=== PATIENT | female | born 1985 | race Caucasian/White ===

== ENCOUNTER 2017-04-03 16:02 | Emergency (ER) | payer SELFPAY ==
[2017-04-03 16:10] VITALS: BP 122/65
--- NOTE | 2017-04-03 16:53 | ER Document Report ---
ED General - General Chief Complaint: Vaginal Bleeding Stated Complaint: VAGINAL BLEEDING Time Seen by Provider: 04/03/17 16:41 Mode of Arrival: Ambulatory Information source: Patient Notes: 31-year-old female 2 para 0 history of infertility of approximately 11 weeks a positive blood type presents with complaints of vaginal bleeding that started approximately an hour ago. Patient denies any large clots TRAVEL OUTSIDE OF THE [place] IN LAST 30 DAYS: No - HPI Onset: Just prior to arrival Onset/Duration: Sudden Quality of pain: Cramping Severity: Mild Pain Level: 1 Associated symptoms: Other Exacerbated by: Denies Relieved by: Denies Similar symptoms previously: No Recently seen / treated by doctor: No - Related Data Allergies/Adverse Reactions: No Known Allergies Allergy (Unverified 04/03/17 16:08) Past Medical History - Social History Smoking Status: Never Smoker Cigarette use (# per day): No Chew tobacco use (# tins/day): No Smoking Education Provided: No Frequency of alcohol use: None Drug Abuse: None Family History: Reviewed & Not Pertinent Patient has suicidal ideation: No Patient has homicidal ideation: No Renal/ Medical History: Denies: Hx Peritoneal Dialysis Review of Systems - Review of Systems Notes: REVIEW OF SYSTEMS: CONSTITUTIONAL : Denies fever, chills, or sweats. Denies recent illness. EENT: Denies eye, ear, throat, or mouth pain or symptoms. Denies nasal or sinus congestion or discharge. Denies throat, tongue, or mouth swelling or difficulty swallowing. CARDIOVASCULAR: Denies chest pain. Denies palpitations or racing or irregular heart beat. Denies ankle edema. RESPIRATORY: Denies cough, cold, or chest congestion. Denies shortness of breath, difficulty breathing, or wheezing. GASTROINTESTINAL: Denies abdominal pain or distention. Denies nausea, vomiting , or diarrhea. Denies blood in vomitus, stools, or per rectum. Denies black, tarry stools. Denies constipation. GENITOURINARY: Denies difficulty urinating, painful urination, burning, frequency, blood in urine, or discharge. FEMALE GENITOURINARY: Admits to vaginal bleeding MUSCULOSKELETAL: Denies back or neck pain or stiffness. Denies joint pain or swelling. SKIN: Denies rash, lesions or sores. HEMATOLOGIC : Denies easy bruising or bleeding. LYMPHATIC: Denies swollen, enlarged glands. NEUROLOGICAL: Denies confusion or altered mental status. Denies passing out or loss of consciousness. Denies dizziness or lightheadedness. Denies headache. Denies weakness or paralysis or loss of use of either side. Denies problems with gait or speech. Denies sensory loss, numbness, or tingling. Denies seizures. PSYCHIATRIC: Denies anxiety or stress. Denies depression, suicidal ideation, or homicidal ideation. ALL OTHER SYSTEMS REVIEWED AND NEGATIVE. PHYSICAL EXAMINATION: GENERAL: Well-appearing, well-nourished and in no acute distress. HEAD: Atraumatic, normocephalic. EYES: Pupils equal round and reactive to light, extraocular movements intact, conjunctiva are normal. ENT: Nares patent, oropharynx clear without exudates. Moist mucous membranes. NECK: Normal range of motion, supple without lymphadenopathy LUNGS: Breath sounds clear to auscultation bilaterally and equal. No wheezes rales or rhonchi. HEART: Regular rate and rhythm without murmurs ABDOMEN: Soft, nontender, nondistended abdomen. No guarding, no rebound. No masses appreciated. Female : deferred Musculoskeletal: Normal range of motion, no pitting or edema. No cyanosis. NEUROLOGICAL: Cranial nerves grossly intact. Normal speech, normal gait. Normal sensory, motor exams PSYCH: Normal mood, normal affect. SKIN: Warm, Dry, normal turgor, no rashes or lesions noted. Dictation was performed using [employer] voice recognition software Physical Exam - Vital signs Vitals: Temp Pulse Resp BP Pulse Ox 98.3 F 79 18 122/65 100 04/03/17 16:09 04/03/17 16:09 04/03/17 16:09 04/03/17 16:09 04/03/17 16:09 Course - Re-evaluation Re-evalutation: 04/03/17 19:50 Ultrasound was consistent with a 12 week intrauterine heart rate 160s , cervix was closed. Patient notes no further clots, I give her very strict pelvic rest and return precautions and explained threatened miscarriage She is very happy with the current plan After performing a Medical Screening Examination, I estimate there is LOW risk for ACUTE APPENDICITIS, BOWEL OBSTRUCTION, ACUTE CHOLECYSTITIS, PERFORATED DIVERTICULITIS, INCARCERATED HERNIA, PANCREATITIS, PELVIC INFLAMMATORY DISEASE, PERFORATED ULCER, ECTOPIC , or TUBO-OVARIAN ABSCESS, thus I consider the discharge disposition reasonable. Also, there is no evidence or peritonitis , sepsis, or toxicity. I have reevaluated this patient multiple times and no significant life threatening changes are noted. The patient and I have discussed the diagnosis and risks, and we agree with discharging home with close follow-up with the understanding that symptoms and presentations can change. We also discussed returning to the Emergency Department immediately if new or worsening symptoms occur. We have discussed the symptoms which are most concerning (e.g., bloody stool, fever, changing or worsening pain, vomiting) that necessitate immediate return. - Vital Signs Vital signs: Temp Pulse Resp BP Pulse Ox 98.3 F 79 18 122/65 100 04/03/17 16:09 04/03/17 16:09 04/03/17 16:09 04/03/17 16:09 04/03/17 16:09 - Laboratory Result Diagrams: 04/03/17 17:34 04/03/17 17:34 Laboratory results interpreted by me: 04/03/17 04/03/17 17:34 18:44 Sodium 135.4 L Calcium 10.6 H Beta HCG, Quant 61050.00 H Urine Blood LARGE H - Diagnostic Test Radiology reviewed: Image reviewed, Reports reviewed Discharge - Discharge Clinical Impression: Threatened miscarriage in early , Bleeding in early Condition: Stable Disposition: HOME, SELF-CARE Instructions: Threatened Miscarriage ([facility]) Additional Instructions: Follow-up with your RELIEF WORKER for reevaluation return immediately if there are any other concerns
[2017-04-03 17:55] LABS: ABSOLUTE LYMPHOCYTES (AUTO) 1.7 10^3/uL (0.5-4.7); ABSOLUTE MONOCYTES (AUTO) 0.8 10^3/uL (0.1-1.4); ABSOLUTE NEUT (AUTO) 6.8 10^3/uL (1.7-8.2); BASOPHILS % (AUTO) 0.5 % (0-2); EOSINOPHILS % (AUTO) 0.5 % (0-6); HEMATOCRIT 38.4 % (36.0-47.0); HEMOGLOBIN 13.1 g/dL (12.0-15.5); LYMPHOCYTES % (AUTO) 18.2 % (13-45); MEAN CORPUSCULAR HEMOGLOBIN 29.2 pg (27.0-33.4); MEAN CORPUSCULAR HGB CONC 34.1 g/dL (32.0-36.0); MEAN CORPUSCULAR VOLUME 86 fl (80-97); MONOCYTES % (AUTO) 8.2 % (3-13); PLATELET COUNT 327 10^3/uL (150-450); RED BLOOD COUNT 4.48 10^6/uL (3.72-5.28); RED CELL DISTRIBUTION WIDTH 13.2 % (11.5-14.0); SEGMENTED NEUTROPHILS % (AUTO) 72.6 % (42-78); TOTAL CELLS COUNTED % (AUTO) 100 %; WHITE BLOOD COUNT 9.4 10^3/uL (4.0-10.5)
[2017-04-03 18:35] LABS: ALANINE AMINOTRANSFERASE 44 U/L (9-52); ALBUMIN 4.4 g/dL (3.5-5.0); ALKALINE PHOSPHATASE 62 U/L (38-126); ANION GAP 10 (5-19); ASPARTATE AMINO TRANSFERASE 28 U/L (14-36); BILIRUBIN,DIRECT 0.3 mg/dL (0.0-0.4); BILIRUBIN,TOTAL 0.3 mg/dL (0.2-1.3); BLOOD UREA NITROGEN 7 mg/dL (7-20); CALCIUM 10.6 mg/dL (8.4-10.2); CARBON DIOXIDE 24 mmol/L (22-30); CHLORIDE 101 mmol/L (98-107); GLUCOSE 95 mg/dL (75-110); POTASSIUM 4.5 mmol/L (3.6-5.0); SODIUM 135.4 mmol/L (137-145); TOTAL PROTEIN 7.7 g/dL (6.3-8.2)
--- NOTE | 2017-04-03 18:57 | RADIOLOGY REPORT (SQ) ---
EXAM DESCRIPTION: U/S OB TRANSVAG W/DOPPLER COMPLETED DATE/TIME: 04/03/2017 6:46 pm REASON FOR STUDY: + preg vag bleed COMPARISON: None. TECHNIQUE: Transvaginal and transabdominal static and realtime grayscale images acquired of the pelv is. Additional selected spectral and color Doppler images recorded. All images stored on PACs. bHCG: Pending. LIMITATIONS: None. FINDINGS: FETUS: EGA: 12 weeks 0 days DANUTA: 10/16/2017 EFW: Not applicable FHR: 162 beats per minute. SHERLY: Adequate PLACENTA: Not applicable CERVICAL LENGTH: 4.1 cm Closed. UTERUS: There is a 4.2 x 2.8 x 3.8 cm anterior uterine fibroid. RIGHT ADNEXA: Normal ovary with normal vascular flow. 2.2 cm cysts. Small amount of free fluid. LEFT ADNEXA: Normal ovary with normal vascular flow. No adnexal free fluid. No adnexal masses. FREE FLUID: None. OTHER: No other significant finding. IMPRESSION: LIVING INTRAUTERINE . ESTIMATED GESTATIONAL AGE:12 weeks 0 days Large uterine fibroid. Right ovarian cyst. Trimester of : First trimester - 0 to 13 weeks. TECHNICAL DOCUMENTATION: JOB ID: [id number] [employer]- All Rights Reserved
[2017-04-03 19:19] LABS: APPEARANCE,URINE CLEAR; BILIRUBIN,URINE NEGATIVE (NEGATIVE); COLOR,URINE STRAW; GLUCOSE, URINE NEGATIVE (NEGATIVE); KETONES,URINE NEGATIVE (NEGATIVE); LEUKOCYTE ESTERASE,URINE NEGATIVE (NEGATIVE); NITRITE,URINE NEGATIVE (NEGATIVE); PROTEIN,URINE NEGATIVE (NEGATIVE); URINE SPECIFIC GRAVITY 1.001; UROBILINOGEN,URINE NEGATIVE mg/dL (<2.0)
== END 2017-04-03 19:14 | disposition home or self-care (01) ==
LOC: ER 16:02
DX: O20.0 Threatened abortion (principal); Z3A.00 Weeks of gestation of pregnancy not specified
CPT/HCPCS: 36415; 76817; 80053; 81001; 84702; 85025; 86900; 86901; 93976; 99284

== ENCOUNTER → 2017-05-08 | Outpatient (CLI) | payer BC | LOC: OD 17:35 | PROVIDERS: ATTEND Obstetrics & Gynecology | DX: Z36.9 Encounter for antenatal screening, unspecified (principal) | CPT/HCPCS: 36415; 82105 ==

== ENCOUNTER 2017-09-30 11:49 | Outpatient (CLI) | payer BC ==
--- NOTE | 2017-09-30 12:27 | Non Stress Test Report ---
Non Stress Test Datetime Report Generated by CPN: 09/30/2017 12:27 DEMOGRAPHIC EGA NST: 37.2 INDICATION Indication for Study: Ordered by Provider Indication for Study (NST) Other: +afp MONITORING Monitor Explained: Monitor Explained; Test Explained; Patient Verbalized Understanding Time on Monitor: 09/30/2017 11:56 Time off Monitor: 09/30/2017 12:21 NST Duration: 25 NST INTERVENTIONS NST Interventions: PO Hydration; Reposition Patient Physician Notified NST: Dr Ryan BABY A: [id number] BABY A Movement : Present Contraction Frequency : none FHR Baseline : 140 Accelerations : 15X15 Decelerations : None Variability : Moderate 6-25bpm NST Review: Meets Criteria for Reactive NST NST Review and Verified By : RAMON Bhatti Results: Reactive NST REPORT Report Trigger: Send Report
== END 2017-09-30 12:27 | disposition home or self-care (01) ==
LOC: LC 11:49
PROVIDERS: ATTEND Obstetrics & Gynecology
PROC: 4A1HXCZ Monitoring of Products of Conception, Cardiac Rate, External Approach (ICD-10-PCS; principal; 2017-09-30)
DX: Z34.93 Encounter for supervision of normal pregnancy, unspecified, third trimester (principal)
CPT/HCPCS: 59025

== ENCOUNTER 2017-10-03 16:24 | Outpatient (CLI) | payer BC | END 2017-10-03 16:59 | disposition home or self-care (01) | LOC: LC 16:24 | PROVIDERS: ATTEND Obstetrics & Gynecology Gynecology | PROC: 4A1HXCZ Monitoring of Products of Conception, Cardiac Rate, External Approach (ICD-10-PCS; principal; 2017-10-03) | DX: Z34.93 Encounter for supervision of normal pregnancy, unspecified, third trimester (principal) | CPT/HCPCS: 59025 ==

== ENCOUNTER 2017-10-04 18:05 | Outpatient (CLI) | payer BC ==
--- NOTE | 2017-10-04 18:21 | Non Stress Test Report ---
Non Stress Test Datetime Report Generated by CPN: 10/04/2017 18:21 DEMOGRAPHIC EGA NST: 37.5 INDICATION Indication for Study: Ordered by Provider Indication for Study (NST) Other: +afp MONITORING Monitor Explained: Monitor Explained; Test Explained; Patient Verbalized Understanding Time on Monitor: 10/03/2017 16:32 Time off Monitor: 10/03/2017 16:56 NST Duration: 24 NST INTERVENTIONS NST Interventions: PO Hydration; Reposition Patient Physician Notified NST: Dr Sosa BABY A: [id number] BABY A Movement : Present Contraction Frequency : irritability FHR Baseline : 140 Accelerations : 15X15 Decelerations : None Variability : Moderate 6-25bpm NST Review: Meets Criteria for Reactive NST NST Review and Verified By : Srini Gonzales RN NST Results: Reactive NST REPORT Report Trigger: Send Report
[2017-10-04 18:46] LABS: APPEARANCE,URINE CLEAR; BILIRUBIN,URINE NEGATIVE (NEGATIVE); COLOR,URINE STRAW; GLUCOSE, URINE NEGATIVE (NEGATIVE); KETONES,URINE NEGATIVE (NEGATIVE); LEUKOCYTE ESTERASE,URINE NEGATIVE (NEGATIVE); NITRITE,URINE NEGATIVE (NEGATIVE); PROTEIN,URINE NEGATIVE (NEGATIVE); URINE SPECIFIC GRAVITY 1.004; UROBILINOGEN,URINE NEGATIVE mg/dL (<2.0)
[2017-10-04 19:19] LABS: URINE AMPHETAMINES SCREEN NEGATIVE; URINE BARBITURATES SCREEN NEGATIVE; URINE BENZODIAZEPINES SCREEN NEGATIVE; URINE MARIJUANA (THC) SCREEN NEGATIVE
[2017-10-04 19:43] LABS: URINE COCAINE SCREEN NEGATIVE; URINE METHADONE SCREEN NEGATIVE; URINE PHENCYCLIDINE SCREEN NEGATIVE
== END 2017-10-04 19:45 | disposition home or self-care (01) ==
LOC: LC 18:05
PROVIDERS: ATTEND Obstetrics & Gynecology
PROC: 4A1HXCZ Monitoring of Products of Conception, Cardiac Rate, External Approach (ICD-10-PCS; principal; 2017-10-04)
DX: Z34.93 Encounter for supervision of normal pregnancy, unspecified, third trimester (principal)
CPT/HCPCS: 80307; 81005; 84112

== ENCOUNTER 2017-10-09 12:32 | Outpatient (CLI) | payer BC ==
--- NOTE | 2017-10-09 12:36 | Non Stress Test Report ---
Non Stress Test Datetime Report Generated by CPN: 10/09/2017 12:36 DEMOGRAPHIC EGA NST: 37.6 INDICATION Indication for Study: Ordered by Provider VITAL SIGNS Temperature - NST: 98.3 Pulse - NST: 75 RESP - NST: 16 NBPSYS NST: 117 NBPDIA NST: 67 URINE RESULTS Urine Protein, NST: Negative Urine Ketones - NST: Negative Urine Glucose - NST: Negative Urine Blood - NST: Negative MONITORING Monitor Explained: Monitor Explained; Test Explained; Patient Verbalized Understanding Time on Monitor: 10/04/2017 18:24 Time off Monitor: 10/04/2017 19:25 NST Duration: 61 NST INTERVENTIONS NST Interventions: None Physician Notified NST: dr glasgow-enio BABY A: [id number] BABY A Movement : Present Contraction Frequency : 20 FHR Baseline : 140 Accelerations : 15X15 Decelerations : None Variability : Moderate 6-25bpm NST Review: Meets Criteria for Reactive NST NST Review and Verified By : K. Jarvis, RN NST Results: Reactive NST REPORT Report Trigger: Send Report
--- NOTE | 2017-10-09 15:06 | Non Stress Test Report ---
Non Stress Test Datetime Report Generated by CPN: 10/09/2017 15:05 DEMOGRAPHIC EGA NST: 38.4 INDICATION Indication for Study: Ordered by Provider MONITORING Monitor Explained: Monitor Explained; Test Explained; Patient Verbalized Understanding Time on Monitor: 10/09/2017 12:46 Time off Monitor: 10/09/2017 14:36 NST Duration: 110 NST INTERVENTIONS NST Interventions: PO Hydration; Reposition Patient Physician Notified NST: J. Maldonado, CNM BABY A Movement : Present Contraction Frequency : 0 FHR Baseline : 145 Accelerations : 15X15 Decelerations : None Variability : Moderate 6-25bpm NST Review: Meets Criteria for Reactive NST NST Review and Verified By : RAMON Astorga Results: Reactive NST REPORT Report Trigger: Send Report
== END 2017-10-09 14:45 | disposition home or self-care (01) ==
LOC: LC 12:32
PROVIDERS: ATTEND Student in an Organized Health Care Education/Training Program
PROC: 4A1HXCZ Monitoring of Products of Conception, Cardiac Rate, External Approach (ICD-10-PCS; principal; 2017-10-09)
DX: Z34.93 Encounter for supervision of normal pregnancy, unspecified, third trimester (principal)
CPT/HCPCS: 59025

== ENCOUNTER 2017-10-13 06:09 | Inpatient (IN) | payer BC ==
[2017-10-10 11:46] LABS: ABSOLUTE LYMPHOCYTES (AUTO) 1.5 10^3/uL (0.5-4.7); ABSOLUTE MONOCYTES (AUTO) 0.9 10^3/uL (0.1-1.4); ABSOLUTE NEUT (AUTO) 5.4 10^3/uL (1.7-8.2); BASOPHILS % (AUTO) 0.5 % (0-2); EOSINOPHILS % (AUTO) 0.6 % (0-6); HEMATOCRIT 33.8 % (36.0-47.0); HEMOGLOBIN 11.5 g/dL (12.0-15.5); LYMPHOCYTES % (AUTO) 19.5 % (13-45); MEAN CORPUSCULAR HEMOGLOBIN 28.9 pg (27.0-33.4); MEAN CORPUSCULAR HGB CONC 34.1 g/dL (32.0-36.0); MEAN CORPUSCULAR VOLUME 85 fl (80-97); MONOCYTES % (AUTO) 11.5 % (3-13); PLATELET COUNT 238 10^3/uL (150-450); RED BLOOD COUNT 3.99 10^6/uL (3.72-5.28); RED CELL DISTRIBUTION WIDTH 13.6 % (11.5-14.0); SEGMENTED NEUTROPHILS % (AUTO) 67.9 % (42-78); TOTAL CELLS COUNTED % (AUTO) 100 %; WHITE BLOOD COUNT 7.9 10^3/uL (4.0-10.5)
[2017-10-10 12:13] LABS: APPEARANCE,URINE CLEAR; BILIRUBIN,URINE NEGATIVE (NEGATIVE); COLOR,URINE YELLOW; GLUCOSE, URINE NEGATIVE (NEGATIVE); KETONES,URINE NEGATIVE (NEGATIVE); LEUKOCYTE ESTERASE,URINE NEGATIVE (NEGATIVE); NITRITE,URINE NEGATIVE (NEGATIVE); PROTEIN,URINE NEGATIVE (NEGATIVE); UROBILINOGEN,URINE NEGATIVE mg/dL (<2.0)
[2017-10-10 12:53] LABS: URINE AMPHETAMINES SCREEN NEGATIVE; URINE BARBITURATES SCREEN NEGATIVE; URINE BENZODIAZEPINES SCREEN NEGATIVE; URINE COCAINE SCREEN NEGATIVE; URINE MARIJUANA (THC) SCREEN NEGATIVE; URINE METHADONE SCREEN NEGATIVE; URINE PHENCYCLIDINE SCREEN NEGATIVE
[~2017-10-13 06:09] MED LIST: CEFAZOLIN 2 GM/D5W RTU 2 GM/50 ML RTUPB IV PRN; LACTATED RINGERS 1000 ML IV PRN; LIDOCAINE 0.5% INJ-PF (5 MG/ML) 50 ML SDV SUBCUT PRN; RINGERS SOLUTION,LACTATED 2,000 ML IV PRN
[2017-10-13] MEDS ORDERED: CEFAZOLIN 1 GM/D5W RTU 2 GM/100 ML RTUPB IV ONE (06:19)
[2017-10-13] MEDS ORDERED: BUPIVACAINE HCL/DEX-WATER/PF 15 MG/2 ML AMPULE ONE (07:03)
[2017-10-13] MEDS ORDERED: OXYTOCIN 10 UNIT/ML VIAL ONE (07:07)
[2017-10-13] MEDS ORDERED: MIDAZOLAM 2 MG/2 ML INJ ONE (07:07)
[2017-10-13] MEDS ORDERED: ONDANSETRON HCL INJ/PF 4 MG/2 ML SDV ONE (07:07)
[2017-10-13] MEDS ORDERED: FENTANYL CITRATE INJ/PF 100 MCG/2 ML AMPUL ONE (07:07)
[2017-10-13] MEDS ORDERED: ACETAMINOPHEN 1,000 MG/100 ML RTUPB IV ONE (07:10)
[2017-10-13] MEDS ORDERED: EPHEDRINE SULFATE INJ 50 MG/1 ML AMPULE ONE (08:40)
[2017-10-13] MEDS ORDERED: PHENYLEPHRINE HCL INJ/PF 10 MG/1 ML SDV ONE (09:17)
[2017-10-13] MEDS ORDERED: METHYLERGONOVINE MALEATE INJ/PF 0.2 MG/1 ML AMPULE ONE (09:25)
[2017-10-13] MEDS ORDERED: TRANEXAMIC ACID INJ/PF 1,000 MG/10 ML SDV IV ONE (09:28)
[2017-10-13] MEDS ORDERED: DIPH/PERTUSS(ACELL)/TETANUS VAC/PF 0.5 ML SYR (>=10YO) IM PRN (09:35)
[2017-10-13] MEDS ORDERED: PROMETHAZINE HCL INJ 25 MG/1 ML VIAL IV PRN ×3 (09:35→09:48)
[2017-10-13] MEDS ORDERED: SIMETHICONE 80 MG TAB.CHEW PO PRN (09:35)
[2017-10-13] MEDS ORDERED: ACETAMINOPHEN 325 MG TABLET PO PRN (09:35)
[2017-10-13] MEDS ORDERED: OXYTOCIN/NORMAL SALINE 20 UNIT/1,000 ML RTUINJ IV PRN (09:35)
[2017-10-13] MEDS ORDERED: MEASLES,MUMPS&RUBELLA VACC/PF 0.5 ML VIAL SUBCUT PRN (09:35)
[2017-10-13] MEDS ORDERED: MORPHINE SULFATE 10 MG/ML INJ IM PRN (09:35)
--- NOTE | 2017-10-13 09:42 | PDOC DELIVERY SUMMARY ---
Delivery Summary - Maternal Hx : II Hx Total # of Abortions (Sponateous & Elective): 1 DANUTA: 10/19/17 Gestational Age: 39+1 Ruptured Membranes: AROM Fluids: Clear - Delivery Labor: Not In Labor Presentation: Vertex Nuchal Cord: Yes - Medications Type of Anesthesia:: Spinal OB Provider Note Provider Note: 8X9 fibroid removed from interior of uterus t time of
--- NOTE | 2017-10-13 09:45 | OPERATIVE REPORT E ---
Operative Report NAME: SHILPA TYLER : 1985 AGE: 32Y DATE OF SURGERY: 10/13/2017 ROOM: 215 PREOPERATIVE DIAGNOSIS: IUP at term with a cervical fibroid. POSTOPERATIVE DIAGNOSIS: IUP at term with a cervical fibroid. PROCEDURE: Primary low-transverse , delivery of a viable male, 6 pounds, 8 and 9 Apgars, and a myomectomy. SURGEON: Kamille JEONG M.D. ESTIMATED BLOOD LOSS: Less than 1000 mL. TISSUE REMOVED: Placenta and fibroid. PROCEDURE: The patient was placed in a supine position, rolled on her right side, prepped and draped in the sterile fashion. A Pfannenstiel incision was made. The incision extended through the subcutaneous tissue and fascia with sharp dissection. Fascia was sharply divided. Rectus muscles were bluntly and sharply divided. Parietal peritoneum was entered with sharp dissection. There was a large fibroid noted on the right approximately 9 x 9 cm. The lower uterine incision was made and extended bilaterally. The was then delivered via [place] through the uteroabdominal incision. Nose and mouth were suctioned with a bulb syringe. Cord was clamped. Infant was passed from the table. The fibroid was removed by dissecting it from the surrounding uterine tissue from the inside where the previous opening had been made. The uterus was then closed in 2 layers, the first a running stitch of 0 Vicryl and the second a Lembert stitch imbricating the first layer. There were 2 areas of bleeding noted, controlled with [id number] sutures of 0 Vicryl. The fascia was then closed with #1 Vicryl and the skin was closed with subcutaneous absorbable gina. The patient tolerated the procedure well. Urine remained clear throughout the procedure. She was taken to the recovery room in good condition and infant to the nursery in good condition. DICTATING PHYSICIAN: Kamille JEONG M.D. [id number] Y#: [id number] ID: [id number] JOB#: [id number] ACCT: [id number] cc:Kamille JEONG M.D. >
[2017-10-13] MEDS ORDERED: FENTANYL CITRATE INJ/PF 100 MCG/2 ML AMPUL IV PRN ×3 (09:48)
[2017-10-13] MEDS ORDERED: DIPHENHYDRAMINE HCL 50 MG/ML VIAL IV PRN (09:48)
[2017-10-13] MEDS ORDERED: MEPERIDINE HCL/PF INJ 25 MG/1 ML DISP.SYRIN IV PRN (09:48)
[2017-10-13] MEDS ORDERED: MORPHINE SULFATE 10 MG/ML INJ IV PRN (09:48)
[2017-10-13] MEDS ORDERED: KETOROLAC TROMETHAMINE INJ/PF 30 MG/1 ML SDV IV SCH (10:00)
[2017-10-13] MEDS ORDERED: PROMETHAZINE HCL INJ 25 MG/1 ML VIAL ONE (10:05)
[2017-10-13] MEDS: MORPHINE SULFATE 10 MG/ML INJ ONE ×3 (10:48→11:06)
[2017-10-13] MEDS ORDERED: OXYTOCIN/NORMAL SALINE 20 UNIT/1,000 ML RTUINJ ONE (10:58)
[2017-10-13] MEDS: OXYCODONE-ACETAMINOPHEN 5-325 MG TABLET PO PRN ×2 (12:58→20:13)
[2017-10-13] MEDS: KETOROLAC TROMETHAMINE INJ/PF 30 MG/1 ML SDV IV SCH ×2 (15:04→22:20)
[2017-10-13] MEDS: DOCUSATE SODIUM 100 MG CAPSULE PO SCH ×2 (16:19→17:47)
[2017-10-13] MEDS: PRENATAL VITAMIN W DHA CAPSULE PO SCH (16:19)
[2017-10-14] MEDS: OXYCODONE-ACETAMINOPHEN 5-325 MG TABLET PO PRN ×3 (03:58→23:15)
[2017-10-14] MEDS: KETOROLAC TROMETHAMINE INJ/PF 30 MG/1 ML SDV IV SCH (06:10)
[2017-10-14 08:14] LABS: HEMATOCRIT 30.7 % (36.0-47.0); HEMOGLOBIN 10.5 g/dL (12.0-15.5); MEAN CORPUSCULAR HEMOGLOBIN 29.1 pg (27.0-33.4); MEAN CORPUSCULAR HGB CONC 34.1 g/dL (32.0-36.0); MEAN CORPUSCULAR VOLUME 85 fl (80-97); PLATELET COUNT 202 10^3/uL (150-450); RED BLOOD COUNT 3.59 10^6/uL (3.72-5.28); WHITE BLOOD COUNT 13.5 10^3/uL (4.0-10.5)
[2017-10-14] MEDS: DOCUSATE SODIUM 100 MG CAPSULE PO SCH ×2 (10:13→17:13)
[2017-10-14] MEDS: PRENATAL VITAMIN W DHA CAPSULE PO SCH (10:13)
[2017-10-14] MEDS: IBUPROFEN 800 MG TABLET PO SCH ×3 (11:54→23:15)
--- NOTE | 2017-10-14 15:12 | PDOC PROGRESS REPORT ---
Subjective-OB Progress Note for:: 10/14/17 Subjective: 32yo G2 now P1 s/p primary ppd 1. Pt. ambulating and voiding without difficulty. Bonding well with baby. Denies any concerns at this time. Physical Exam (OB) Vital Signs: Temp Pulse Resp BP Pulse Ox 98.4 F 73 18 105/68 98 10/14/17 04:11 10/14/17 04:11 10/14/17 04:11 10/14/17 04:11 10/14/17 04:11 Intake & Output 10/13/17 10/14/17 10/15/17 06:59 06:59 06:59 Intake Total 2836 Output Total 2942 Balance -106 Weight 87.543 kg - General General Appearance: Appears well In distress: None - PIH/Pre-Eclampsia Clonus: Negative Epigastric Pain: No Visual Changes: No - Dressing Removed: No - Medipore dressing, CDI, no drainage noted Incision: Dressing, Well Approximated - Lochia Lochia Amount: Scant < 10 ml Lochia Color: Rubra/Red - Abdomen Description: Soft, Round Hernia Present: No Fundal Description: Firm, Midline Fundal Height: u/u - u/2 - Respiratory Respiratory Status: No respiratory distress - Extremities Upper extremity: Normal inspection Lower extremities: Normal inspection - Neurological Cognition: Normal Orientation: AAOx4 - Psychological Associated symptoms: Normal affect, Normal mood Objective-Diagnostic Laboratory: 10/14/17 06:53 10/13/17 10/14/17 06:41 06:53 WBC 13.5 H RBC 3.59 L Hgb 10.5 L Hct 30.7 L MCV 85 MCH 29.1 MCHC 34.1 RDW 14.0 Plt Count 202 Blood Type A POSITIVE Antibody Screen NEGATIVE Assessment and Plan(PN) - Assessment and Plan (1) Status post primary low transverse section Is this a current diagnosis for this admission?: Yes Plan: Routine pp care (2) Fibroid Qualifiers: Uterine leiomyoma location: unspecified location Qualified Code(s): D25.9 - Leiomyoma of uterus, unspecified Is this a current diagnosis for this admission?: Yes Plan: removed at time of surgery, pathology pending (3) Acute blood loss anemia Is this a current diagnosis for this admission?: Yes Plan: increase dietary iron and feso4 bid - Time Spent with Patient Time with patient: Less than 15 minutes Medications reviewed and adjusted accordingly: Yes - Disposition Anticipated Discharge: Home Within: within 24 hours
[2017-10-15] MEDS: OXYCODONE-ACETAMINOPHEN 5-325 MG TABLET PO PRN (07:20)
[2017-10-15] MEDS: IBUPROFEN 800 MG TABLET PO SCH ×2 (07:22→11:55)
[2017-10-15] MEDS: DOCUSATE SODIUM 100 MG CAPSULE PO SCH (09:20)
[2017-10-15] MEDS: PRENATAL VITAMIN W DHA CAPSULE PO SCH (09:21)
--- NOTE | 2017-10-15 10:00 | PDOC PROGRESS REPORT ---
Subjective-OB Progress Note for:: 10/15/17 Subjective: Post Op Day #2, Primary due to fibroid at the cervix, A+ Rubella Immune, , desires to go home today Physical Exam (OB) Vital Signs: Temp Pulse Resp BP Pulse Ox 98.2 F 84 17 115/68 98 10/15/17 08:34 10/15/17 08:34 10/15/17 08:34 10/15/17 08:34 10/15/17 08:34 Intake & Output 10/14/17 10/15/17 10/16/17 06:59 06:59 06:59 Intake Total 2836 1000 Output Total 2942 Balance -106 1000 - General General Appearance: Appears well, Alert In distress: None - PIH/Pre-Eclampsia Clonus: Negative Headache: Absent Epigastric Pain: No Visual Changes: No - Dressing Removed: No Incision: Dressing, Well Approximated Closure Type: Sutures - Lochia Lochia Amount: Small 10-25 ml Lochia Color: Rubra/Red - Abdomen Description: Soft, Round Hernia Present: No Fundal Description: Firm, Midline Fundal Height: u/u - u/2 - Respiratory Respiratory Status: No respiratory distress - Abdominal Inspection: Normal Distension: No distension Tenderness: Nontender Organomegaly: No organomegaly - Genitourinary Genitourinary Note: voiding - Extremities Upper extremity: Normal inspection Lower extremities: Normal inspection - Neurological Cognition: Normal Orientation: AAOx4, Alert - Psychological Associated symptoms: Normal affect, Normal mood Objective-Diagnostic Laboratory: 10/14/17 06:53 Assessment and Plan(PN) - Assessment and Plan (1) Acute blood loss anemia Is this a current diagnosis for this admission?: Yes (2) Fibroid Qualifiers: Uterine leiomyoma location: unspecified location Qualified Code(s): D25.9 - Leiomyoma of uterus, unspecified Is this a current diagnosis for this admission?: Yes (3) Status post primary low transverse section Is this a current diagnosis for this admission?: Yes - Time Spent with Patient Time with patient: Less than 15 minutes Medications reviewed and adjusted accordingly: Yes - Disposition Anticipated Discharge: Home Disposition: stable
--- NOTE | 2017-10-15 10:04 | PDOC DISCHARGE SUMMARY ---
Final Diagnosis Discharge Date: 10/15/17 - Final Diagnosis (1) Acute blood loss anemia Is this a current diagnosis for this admission?: Yes (2) Fibroid Is this a current diagnosis for this admission?: Yes (3) Status post primary low transverse section Is this a current diagnosis for this admission?: Yes Discharge Data - Discharge Medication Prescriptions: Ibuprofen [Motrin 800 mg Tablet] 800 mg PO Q6 #30 tablet Oxycodone HCl/Acetaminophen [Percocet 5-325 mg Tablet] 2 tab PO Q4HP PRN #30 tablet PRN Reason: Pain Scale Of 3 Home Medications: Levothyroxine Sodium [Synthroid 0.025 mg Tablet] 50 mcg PO DAILY 09/30/17 Vit,Calc76/Iron/Folic [Prenatabs Rx Tablet] 1 each PO DAILY 09/30/17 Ranitidine HCl [Zantac 150 mg Tablet] 150 mg PO DAILY 09/30/17 Ibuprofen [Motrin 800 mg Tablet] 800 mg PO Q6 #30 tablet 10/15/17 Oxycodone HCl/Acetaminophen [Percocet 5-325 mg Tablet] 2 tab PO Q4HP PRN #30 tablet 10/15/17 Reason(s) for Admission: Ceasarean Section-Primary Procedures: NST, Ultrasound Intrapartum Procedure(s): : Low Cervical, Transverse - Diagnosis Test Laboratory: Temp Pulse Resp BP Pulse Ox 98.2 F 84 17 115/68 98 10/15/17 08:34 10/15/17 08:34 10/15/17 08:34 10/15/17 08:34 10/15/17 08:34 10/10/17 10/10/17 10/14/17 11:00 11:11 06:53 RBC 3.99 3.59 L Hgb 11.5 L 10.5 L Hct 33.8 L 30.7 L Urine Opiates Screen NEGATIVE - Discharge information/Instructions Discharge Activity: Activity As Tolerated, No Driving, No Lifting/Push/Pulling, Pelvic Rest Discharge Diet: As Tolerated, Regular Disposition: HOME, SELF-CARE Follow up with: [facility] in: 1, Weeks
[2017-10-15 14:06] VITALS: BP 110/67
== END 2017-10-15 15:41 | disposition home or self-care (01) | DRG 765 ==
LOC: 2S 06:09
PROVIDERS: ADMIT Obstetrics & Gynecology Gynecology; ATTEND Obstetrics & Gynecology Gynecology
PROC: 0UB90ZZ Excision of Uterus, Open Approach (ICD-10-PCS; 2017-10-13)
PROC: 10D00Z1 Extraction of Products of Conception, Low, Open Approach (ICD-10-PCS; 2017-10-13)
PROC: 4A1HXCZ Monitoring of Products of Conception, Cardiac Rate, External Approach (ICD-10-PCS; 2017-10-13)
PROC: 10D00Z1 Extraction of Products of Conception, Low, Open Approach (ICD-10-PCS; principal; 2017-10-13 09:15)
DX: O34.13 Maternal care for benign tumor of corpus uteri, third trimester (principal); D62 Acute posthemorrhagic anemia; O99.02 Anemia complicating childbirth; D25.9 Leiomyoma of uterus, unspecified; O99.284 Endocrine, nutritional and metabolic diseases complicating childbirth; E03.9 Hypothyroidism, unspecified; Z3A.39 39 weeks gestation of pregnancy; Z37.0 Single live birth
CPT/HCPCS: 1961; 36415; 59025; 80307; 81001; 85025; 85027; 86850; 86900; 86901; 88305; 94799; J0131; J1885; J2210; J2250; J2270; J2370; J2405; J2550; J2590; J3010; J3490; J7120